=== PATIENT | male | born 1945 | race Two or more races ===

== ENCOUNTER → 2023-08-19 15:13 | Outpatient (REF) | payer MEDICARE, SELFPAY | LOC: MRI 3T 15:13 | PROVIDERS: ATTENDING PHYSICIAN Psychiatry & Neurology Neurology; FAMILY PHYSICIAN Nurse Practitioner Family | DX: M54.50 Low back pain, unspecified (principal); M54.17 Radiculopathy, lumbosacral region | CPT/HCPCS: 72148 ==